=== PATIENT | female | born 1940 | race Caucasian/White ===

== ENCOUNTER → 2017-11-27 13:32 | Outpatient (CLI) | payer MEDICARE, OTHER, SELFPAY ==
--- NOTE | 2017-11-27 | DI.MRI.S_ITS ---
PROCEDURE: MR KNEE LT WO CON INDICATIONS: ARTHRITIS OF LEFT KNEE TECHNIQUE: Noncontrast sagittal PD fast spin echo and T2 fast spin echo with fat saturation, sagittal 3-D FLASH with fat saturation; coronal T1 spin echo and PD fast spin echo with fat saturation, and axial PD fast spin echo with fat saturation through the knee. COMPARISON: None. FINDINGS: Image quality: Excellent. Menisci: The medial meniscus is intact. The complex tear entire lateral meniscus is seen extending to both superior and inferior articulating surfaces and peripheral displacement of lateral meniscus bowing lateral collateral ligament. Cruciate ligaments: There is degenerative changes in anterior cruciate ligament. No evidence of ACL tear. Posterior cruciate ligament is intact. Medial structures: The medial collateral ligament appears intact. The posterior oblique ligament, semimembranosus tendon insertions, oblique popliteal ligament, and meniscocapsular junction appear intact. Visualized portions of the pes anserinus tendons appear normal. No abnormal bursal fluid. Lateral structures: Lateral collateral ligament sprain is seen with mildly thickened LCL and surrounding soft tissue edema. The long and short heads of the biceps femoris tendon appear intact. The popliteus tendon appears normal; the popliteofibular ligament appears intact. The posterosuperior and anteroinferior popliteomeniscal fascicles appear intact. The arcuate and fabellofibular ligaments appear intact, on either side of the lateral inferior geniculate artery. Iliotibial band appears normal. Anterior structures: The quadriceps and patellar tendons appear intact. Patellar alignment is normal. No femoral trochlear dysplasia or ventral trochlear prominence. No edema in the infrapatellar fat pad. Bones and cartilage: No bone marrow contusions or moderate to severe tricompartmental osteoarthritis is seen more prominent in the lateral femorotibial compartment. There is near-complete loss of articulating cartilage is a medial and lateral femorotibial compartments. Diffuse thinning of patellar cartilage is also seen. Medial meniscus is intact. Joint space: There is a moderate amount of joint effusion. 3.1 x 1 x 4.9 cm popliteal cyst is seen. No gross loose body. Normal appearing synovial plicae are incidentally noted. Impression: 1. Moderate to severe tricompartment osteoarthritis most prominent in lateral femorotibial compartment. No fracture or dislocation. A moderate amount of joint effusion. Popliteal cyst as above. 2. Chronic-appearing complex tear throughout lateral meniscus. No focal medial meniscal tear. 3. Degenerative changes in lateral anterior cruciate ligament. No evidence of cruciate ligament rupture. 4. Low-grade LCL sprain. Dictated by: Jonah Barker M.D. on 11/27/2017 at 14:57 Approved by: Jonah Barker M.D. on 11/27/2017 at 15:53
== END ==
PROVIDERS: Visit Provider Orthopaedic Surgery
DX: S83.282A Other tear of lateral meniscus, current injury, left knee, initial encounter (principal); S83.422A Sprain of lateral collateral ligament of left knee, initial encounter; M17.12 Unilateral primary osteoarthritis, left knee; M71.22 Synovial cyst of popliteal space [Baker], left knee; M25.462 Effusion, left knee
CPT/HCPCS: 73721

== ENCOUNTER 2018-01-06 15:06 | Observation (INO) | payer MEDICARE, OTHER, SELFPAY ==
[2017-12-23 12:51] VITALS: BMI 26.8
[2018-01-05] VITALS (12 sets, daily range): BP systolic 102–143; BP diastolic 46–88; PULSE 63–92; RESP 11–20; TEMP 35–37.1; O2SAT 91–100; BMI 26.8
--- NOTE | 2018-01-05 06:30 | DI.RAD.S_ITS ---
PROCEDURE: XR KNEE LT 1TO2V INDICATIONS: POST OPERATIVE TOTAL LEFT KNEE TECHNIQUE: 2 view(s) of the knee acquired. COMPARISON: [facility], CR, XR KNEE 3 VIEWS LEFT, 03/16/2017, 14:07. [facility], MR, MR KNEE LT WO CON, 11/27/2017, 14:05. [facility], CR, XR KNEE ARTHRITIC SERIES LT, 11/11/2017, 9:22. FINDINGS: Bones: Patient is status post knee joint arthroplasty. Hardware components are in expected positions. Visualized bony structures are intact. Soft tissues: Overlying postoperative changes are noted. IMPRESSION: Status post knee arthroplasty as above. Dictated by: Maria Alejandra Benz M.D. on 01/05/2018 at 17:04 Approved by: Maria Alejandra Benz M.D. on 01/05/2018 at 17:05
[2018-01-05] MEDS: CELECOXIB 200 MG CAPSULE PO (12:09)
[2018-01-05] MEDS: LACTATED RINGERS 1,000 ML 42 ML IV ×2 (12:09→14:39)
[2018-01-05] MEDS: PREGABALIN 75 MG CAPSULE PO (12:09)
[2018-01-05] MEDS: ACETAMINOPHEN 325 MG TABLET 975 MG PO ×2 (12:09→21:08)
[2018-01-05] MEDS: VANCOMYCIN 1,000 MG/200 ML FROZ.PIGGY 200 MG IV (12:31)
[2018-01-05] MEDS: CLINDAMYCIN 900 MG/50 ML PIGGYBACK 50 MG IV (13:22)
--- NOTE | 2018-01-05 13:25 | PM.PREOP ---
Pre-operative Note Interval Note Pre-op Check: Yes History & Physical Reviewed by Physician and Yes Exam Performed Changes: No
--- NOTE | 2018-01-05 13:30 | PM.OP.1 ---
Operative Date/Time/Diagnoses Date of procedure: 01/05/18 Time of procedure: 13:30 Pre-op diagnosis: Left knee osteoarthritis Post-op diagnosis: same Procedure & Clinicians Procedure: left total knee arthroplasty Same procedure as scheduled: Yes Indications: The patient has had progressively worsening left knee pain with radiographic changes consistent with arthritis. Non-operative management has failed and the patient has requested total knee replacement. The risks, benefits and alternatives to surgery were discussed with the patient prior to proceeding. Risks discussed included, but were not limited to, failure to relieve pain, stiffness, infection, nerve damage, deep venous thrombosis, pulmonary embolism, stroke, coma, heart attack, permanent paralysis and , as well as the potential need for eventual revision of the prosthetic. Surgeon: Anabell Vargas Cuff Setter Lockstitch: Melissa Kennedy Anesthesia Type: General and Spinal Operative Notes Findings: severe left knee osteoarthritis with marked valgus deformity Closure Type: primary Specimen(s): none sent Implants & Drains: Vargas and Nephew Garo BCS2 size 5 left femur, 35 mm patella, size 4 left tibia, +10 poly Estimated Blood Loss (mL): 200 Blood products transfused: none Tourniquet time (min): 78 Procedure in detail: The patient was seen in the pre-operative area, where the patient identified the right knee as the operative site and this was marked with my initials. The patient received pre-operative antibiotics, and was taken to the operating room and placed on the operative table in the supine position. After satisfactory anesthesia, a maritime guard out was performed. The right leg was encircled with a tourniquet about the proximal thigh, and the leg was prepared from the toes to the tourniquet with ChloroPrep in the usual fashion and draped through sterile drapes. The leg was elevated and exsanguinated with Eschmark bandage and the tourniquet inflated to [250] mmHg pressure. The knee was approached through an approximately 18 cm incision centered over the patella and carried into the knee through a medial parapatellar arthrotomy. A portion of the medial and lateral meniscus was resected. Soft tissue was carefully mobilized around the patella the patella was measured with a caliper. Bone was resected from the patella and the patellar height was reconstituted with up an appropriate sized patellar component. A cover was then placed on the patella. A small amount of additional medial and lateral meniscus was resected. The visionare guide fit well to the distal femur. It looked like an appropriate distal femoral cut and the cut was made without difficulty. The rotation was assessed and the appropriate size femoral guide was placed on the distal femur and finishing cuts were made. There was no evidence of notching. The anterior, posterior and chamfer cuts were then made. The posterior osteophytes and soft tissues were then removed. The posterior capsule was injected with part of a mixture of 60 ml 0.25% Marcaine mixed with 20 ml Exparel for post operative pain control. The remainder of this mixture was injected into the capsule and subcutaneous tissues during cement curing. The tibia was prepared and the visionaire guide fit well to the distal tibia. The rotation was assessed. The patient was placed in extension residual medial and lateral meniscus as well as any residual bone was carefully resected. [No] additional tibia was resected. Hemostasis was achieved especially posteriorly. Additional local was injected into the posterior capsule. The extension gap was assessed and additional releases for gap balancing were performed as necessary. It was checked with the gap piano machine operator. The femoral component was trial was placed and the notch was finished. Trial tibial and femoral components were then placed and the knee placed through a range of motion. Range of motion was [0-130], with good stability throughout the range. The trials were then removed, and the tibia was finished. The bone was prepared with pulsatile lavage, and dried with a sponge. Cement was applied and the final prosthetics placed. Excess cement was removed during and after cement curing. A brief Betadine soak was performed. After confirming there was no extruded cement posteriorly, the final tibial insert was placed. The knee was copiously irrigated and the tourniquet deflated. Hemostasis was obtained with the bovie cautery. A drain was placed and brought out superolaterally. The capsule was closed with interrupted braided suture. The subcutaneous layer was closed with barbed sutures, and the skin with a running 3-0 V-Lock suture and Surgical glue. An Aquacel Ag dressing was applied and the patient was taken to recovery having tolerated the procedure well. Complications: none Condition: stable Disposition: Acute Care Plan for aftercare: The patient will be maintained on a standard total knee replacement protocol with weight bearing as tolerated. The patient will receive aspirin and sequential compression devices for DVT prophylaxis. The patient will be discharged home when safe for the home environment.
--- NOTE | 2018-01-05 13:55 | SUR.OPER ---
Supine on padded OR bed. Pillow under head, arms secured on padded armboards <90 degree abduction. Safety belt across torso. Non-operative leg secured with tape over blanket over lower leg. Operative leg secured in DeMayo/Lenny positioner. Foam padded brace at thigh of operative leg.
[2018-01-05] MEDS: BUPIVACAINE 0.25% W/ EPI VIAL 50 ML INJ (14:03)
[2018-01-05] MEDS: BUPIVACAINE LIPOSOME 266 MG/20 ML VIAL INJ (14:03)
[2018-01-05] MEDS: TRANEXAMIC ACID 1,000 MG VIAL 1000 MG INJ ×2 (14:04→14:40)
[2018-01-05] MEDS: POVIDONE-IODINE 15 ML, SODIUM CHLORIDE 0.9% 250 ML TOP (14:05)
[2018-01-05] MEDS: LACTATED RINGERS 1,000 ML 125 ML IV (19:40)
[2018-01-05] MEDS: IBUPROFEN 600 MG TABLET PO (19:41)
[2018-01-05] MEDS: OXYCODONE IR 5 MG TABLET PO ×2 (19:44→23:55)
[2018-01-05] MEDS: POLYETHYLENE GLYCOL 3350 17 GM POWD.PACK PO (21:08)
[2018-01-05] MEDS: DOCUSATE 100 MG CAPSULE PO (21:08)
[2018-01-05] MEDS: ASPIRIN EC 81 MG TABLET PO (21:08)
[2018-01-05] MEDS: CEFAZOLIN 2 GM/100 ML FROZ.PIGGY IV (21:08)
[2018-01-06 03:52] VITALS: BP 137/58; PULSE 71; RESP 18; TEMP 36.6; O2SAT 97
[2018-01-06] MEDS: LACTATED RINGERS 1,000 ML 125 ML IV (04:00)
[2018-01-06] MEDS: CEFAZOLIN 2 GM/100 ML FROZ.PIGGY IV (05:43)
[2018-01-06] MEDS: OXYCODONE IR 5 MG TABLET PO ×2 (05:43→09:43)
--- NOTE | 2018-01-06 06:22 | PC.NURSE ---
This morning patient is very anxious. Reported feeling SOB with shallow breathing. Patients 02 sat on room air is 100%, RR 16. I explained to patient how taking narcotics can depress the respiratory system and she understood, however, it appears to be more of an anxiety issue rather than a narcotic one. HOB elevated, continuous pulse ox applied, reassured, told her to take slow deep breaths in through her nose and out through her mouth
[2018-01-06 06:33] LABS: Hemoglobin 11.2 g/dL (12.0-16.0)
[2018-01-06 07:20] VITALS: BP 133/76; PULSE 75; RESP 19; TEMP 36.6; O2SAT 100
[2018-01-06] MEDS: hydrOXYzine pamoate 25 MG CAPSULE 50 MG PO ×2 (08:13→14:04)
[2018-01-06] MEDS: ACETAMINOPHEN 325 MG TABLET 975 MG PO ×2 (08:14→14:04)
[2018-01-06] MEDS: ASPIRIN EC 81 MG TABLET PO (08:22)
[2018-01-06] MEDS: KETOROLAC 15 MG/ML VIAL IV (08:22)
[2018-01-06] MEDS: ONDANSETRON 4 MG/2 ML INJ IV (09:02)
--- NOTE | 2018-01-06 09:19 | CM.DANOTE ---
Patient is a 77 year old female who was admitted on 01/05/18 for LTKA. Pt has MCR and PRE PREFERRED for insurance and her PCP is Dr. Glen May. EMR was reviewed. Per RN, pt still has significant pain, nausea, and anxious. PT has been ordered and Pending. SW met bedside with pt and adult Dtr and explained role and pt confirmed that she lives at home alone on [address] with one supportive adult Dtr nearby who can provide assist at d/c and the Dtr who is currently bedside is here visiting from out of town and plans to stay a little while with the pt at d/c to assist. Pt is typically Independent with ADL's at baseline and drives. Pt has a walker and family just rented a Hospital Bed that was delivered and was placed near the bathroom on the main floor. Pt states that she has a hx of HH after a hip surgery and felt that HH PT was helpful but cannot remember the agency. Pt denies any hx of SNF. Pt states that her preference is home with her two adult Dtrs at discharge and that she has a dog and couple cats at home. Pt states she would be agreeable to HH if needed. Pt's Dtr also states that they have a private pay caregiver on hold in case the pt needs the extra assistance at d/c. Plan: SW to follow closely for PT/OT eval and recommendations to determine if pt is safe for d/c home with supportive adult Dtrs and to r/o HH or possible SNF if pt has ongoing pain management issues. KATIE Giles Discharge Planning/Care Management CM Discharge Assessment Start: 01/06/18 09:15 Freq: Status: Active Protocol: Document 01/06/18 09:16 BF (Rec: 01/06/18 09:19 [id number]) Discharge Planning Assessment Assigned Printing Plate Clerk KATIE Lyon Advance Directives? Yes Advance Directives on File No History Provided By Patient Family Member Medical Record Has Patient been admitted in last 30 No days? Prior Living Arrangements House Comment Home alone with one supportive Dtr nearby Household Members none Type of transporation used prior to Drives own vehicle admit Independent with ADL's Yes Is patient alert and oriented? Yes Caregiver for Another No: Has a dog and 3 cats DME Already Rented / Owned Hospital Bed FWW / Walker Comment PT/OT still pending, d/c needs unclear at this time. Barriers to Discharge No Discharge Plan Home Community Services Physical Therapy Occupational Therapy Transportation Arrangement Patient has two adult Dtrs who can provide transport at d/c Additional Comment Waiting for PT/OT eval and recommendations. Whiteboard Updated in Patient Room with Yes name and ext. # of Printing Plate Clerk Review Status In Process Please Provide Date Initial DC 01/06/18 Assessment Was Performed Next Review Type Continued Stay Review
[2018-01-06] MEDS: DOCUSATE 100 MG CAPSULE PO (09:43)
[2018-01-06] MEDS: hydroCHLOROthiazide 25 MG TABLET PO (09:44)
--- NOTE | 2018-01-06 09:55 | PT.IIE ---
Current Diagnoses Unilateral primary osteoarthritis, left knee (01/05/18) Surgery Performed Operation Date: 01/05/18 13:45 Actual Procedures p Total Knee Arthroplasty(Left) - Anabell Vargas MD Surgical History (Last Updated 12/29/17 @ 09:19 by Jennifer Rutherford RN) History of total right hip arthroplasty (Acute) Hx of cholecystectomy (Acute) Hx of tonsillectomy (Acute) Medical History (Last Updated 12/29/17 @ 09:19 by Jennifer Rutherford RN) Diverticulitis (Acute) Dizziness (Acute) RED DEVIL (hard of hearing) (Acute) HTN (hypertension) (Acute) History of hysterectomy (Acute) Osteoarthritis (Acute) Pneumonia (Acute) Syncope (Acute) Physical Therapy Inpatient Evaluation/Re-Eval M1 PT/OT-IP Prior Functional Status Start: 01/06/18 13:23 Freq: NEEDED Status: Active Protocol: Document 01/06/18 09:55 AB (Rec: 01/06/18 13:42 AB [id number]) Medical Review Prior Functional Status Medical History Reviewed Yes Communication able to make needs known Mobility and Gait pt stated that she is independent with all mobilities and ambulation without AD indoors but uses SPC for long distance outdoor mobility Social History Household Members none Living Arrangements House Number of Floors (Floors) Two Floors Number of Stairs To Enter/Railing? 4 steps to enter with R rail ascending has 1 flight of steps to 2nd floor with L rail ascending Home Environment Tub/Shower Home Equipment Front Wheel Walker Straight Cane Raised Toilet Seat w/Armrests Hand Held Shower Grab Bars In Shower Employment Status Retired Additional Social History Comment pt stated that she is going to stay on main level of the house and there is a hospital bed set up already and is ~ 10 steps away from the toilet. pt's daughter from [place] will be staying with pt until thursday and another daughter that lives ~ 5 miles away will check on pt afterwards. M2 PT-IP Current Condition Start: 01/06/18 13:23 Freq: NEEDED Status: Active Protocol: Document 01/06/18 09:55 AB (Rec: 01/06/18 13:42 AB [id number]) Physical Therapy Current Condition Current Condition Evaluation Date 01/06/18 Treatment Diagnosis s/p L TKA Onset Date 01/05/18 Weight Bearing Status Weight Bearing Status Weight Bear as Tolerated M3 PT-IP Subjective Start: 01/06/18 13:23 Freq: NEEDED Status: Active Protocol: Document 01/06/18 09:55 AB (Rec: 01/06/18 13:42 AB [id number]) Subjective Physical Therapy Visit Type Type Initial Evaluation Visit Start Time 09:55 Visit Stop Time 11:15 Total Visit Minutes 80 Number of CHILDREN'S TUTOR NURSERY Visits 0 Therapy Pain Assessment Pain When Pain Assessed During Mobility Pain Present Pain Present Pain Reported Location Left Knee Scale Used pain scale not stated Pain Management Techniques Timing of Activity with Medications M4 PT-IP Mobility and Gait Start: 01/06/18 13:23 Freq: NEEDED Status: Active Protocol: Document 01/06/18 09:55 AB (Rec: 01/06/18 13:42 AB [id number]) PT-Bed Mobility Assessment Supine to Sit Supine to Sit Standby Assistance PT-Transfer Assessment Sit to and From Stand Sit to and from Stand Contact Guard Assistance Equipment Transfer Assistive Device Gait Belt Front Wheeled Walker Orthotic/Prosthetic Devices or Brace: No Transfers Transfer Destination Chair Transfer Technique Stand Step Pivot Transfer Ability Level of Assist Contact Guard Assistance Gait Assessment Gait Gait Assistance Required: Contact Guard Assist Distance (Feet) (feet) 50 Able to Maintain Weight Bearing Status Yes During Gait Assistive Devices Assistive Device Gait Belt Front Wheeled Walker Orthotic/Prosthetic Devices or Brace: No Gait Deviations General Gait Pattern Antalgic Decreased Stride Length Decreased Feet Clearance Factors Limiting Gait Function Factors Limiting Gait Function Decreased Activity Tolerance Decreased Strength Difficulty Following Directions Limited Range of Motion Pain Poor Balance Poor Safety Awareness Comments Gait Comments requires cues for safety Stair Climbing Assessment Evaluation Level of Assist On Stairs Minimal Assistance Devices Stair Climbing Assistive Devices Right Railing Technique/Endurance Stair Climbing Direction Ascend and Descend Stair Climbing Technique Step to Step Number of Steps Climbed 3 Query Text: Stair Climbing Set # Repetitions (reps) 1 Comments Stair Climbing Comments pt completed descent on steps backwards requiring min A. pt stated that this is how she does it at home and is more comfortable completing steps backwards. pt completed safely with daughter assisting . PT-Balance Assessment Sitting Balance and Reactions Static Sitting Balance Ability Good Dynamic Sitting Balance Ability Good Standing Balance and Reactions Static Standing Balance Ability Fair Dynamic Standing Balance Ability Fair Device Used FWW M5 PT-IP Objective Assessments Start: 01/06/18 13:23 Freq: NEEDED Status: Active Protocol: Document 01/06/18 09:55 AB (Rec: 01/06/18 13:42 AB [id number]) Orientation Orientation/Cognition Level of Alertness Confusional State Orientation Name Age Birthday Place Situation Safety Awareness Decreased Safety Awareness Memory Description Short Term Impaired [facility] Impaired Comments pt seems a little confused requiring repeated cues for instructions. daughter stated that it is because of the meds. Gross Range of Motion Lower Extremity ROM Assessment Left Impaired Strength Lower Extremity Strength Assessment Left Impaired Knee 4-/5 Sensation Assessment Sensation Gross Sensation WNL Muscle Tone Muscle Tone WNL Yes M6 PT-IP Treatment Start: 01/06/18 13:23 Freq: NEEDED Status: Active Protocol: Document 01/06/18 09:55 AB (Rec: 01/06/18 13:42 AB [id number]) Physical Therapy Treatment Exercises Exercises Heel Slides Education Education Provided Precautions Weight Bearing Status Post-Op Packet Safety Other Treatments Other Treatment Performed caregiver training completed with daughter assisting pt. educated on how to use safety belt on pt and how to assist and cue pt safely. daughter was able to demonstrate safety with assisting pt and providing necessary assistance pt needed. M7 PT-IP Assessment and Plan Start: 01/06/18 13:23 Freq: NEEDED Status: Active Protocol: Document 01/06/18 09:55 AB (Rec: 01/06/18 13:42 AB [id number]) PT Summary Assessment and Plan Potential Rehabilitation Potential Good Status of Condition at Evaluation Evolving Summary Impairments Pain ROM Strength Balance Coordination Sensation Tone Cognition Bed Mobility Transfers Gait Activity Tolerance Assessment Summary pt requiring one person assist with mobility. caregiver training completed for bed mobility, transfers, ambulation and stairclimbing and daughter was able to safely assist pt. pt may go home when medically stable. Goals Bed Mobility Goal Independent Transfer Goal Independent Gait Goal Independent Gait Distance 100 Other Goals up/down 4 steps with R rail ascending SBA Days to Meet Goals 2 Frequency of Treatment Frequency Of Treatment Twice a Day Treatment Plan Physical Therapy Treatment Plan Bed Mobility Training Transfer Training Gait Training Therapeutic Exercise Balance Retraining Post Op Education Discharge Planning Hot or Cold Pack Neuromuscular Re-ed Coordination Retraining Manual Therapy Other Recommendations and Next Treatment caregiver training, ambulation Focus , stair climbing Recommendations To Nursing Amount of Assist Needed 1 Person Assist Discharge Recommendations PT Discharge Recommendations Home with 17/11 Assist Outpatient PT
--- NOTE | 2018-01-06 10:04 | PM.PNPO.1 ---
Subjective Date Patient Seen: 01/06/18 Time Patient Seen: 10:04 Interval history: Patient's pain is currently mild. She notes is severe earlier this morning. She has been up a couple times to use the bathroom but has not had formal physical therapy yet. Her daughters are home to assist her. She has for small steps into her home. If she is able ambulate with physical therapy she would like to go home later this afternoon. Denies fever chills. Otherwise without complaints. Exam Vital Signs (past 8 hours): - 01/06/18 03:52 Temperature 97.9 F Pulse Rate 71 Respiratory Rate 18 Blood Pressure 137/58 L Pulse Oximetry 97 Oxygen Delivery Method Room Air Narrative Exam Narrative: Pleasant 77-year-old female resting comfortably in bed in no apparent distress. Left knee dressing is clean, dry and intact. Motor functions intact to the distal left lower extremity. Leg is warm and dry. Sensation is grossly intact to light touch. Objective Labs Result Diagrams: 01/06/18 06:08 Labs: Laboratory Results - last 24 hr 01/06/18 06:08 Hgb 11.2 L Hct 32.0 L Assessment & Plan Post-op Postoperative Procedures Operation Date: 01/05/18 13:45 Actual Procedures Side Surgeon p Total Knee Arthroplasty Left Anabell Vargas MD Postop day 1. Patient progressing as expected status post left total knee arthroplasty. Ambulate with physical therapy. Likely discharge home later this afternoon. Quality VTE Deep Vein Thrombosis/Pulmonary Embolism Present on Admission: No
--- NOTE | 2018-01-06 15:20 | PT.IPTN ---
Current Diagnoses Unilateral primary osteoarthritis, left knee (01/05/18) Surgery Performed Operation Date: 01/05/18 13:45 Actual Procedures p Total Knee Arthroplasty(Left) - Anabell Vargas MD Physical Therapy Treatment Note M2 PT-IP Current Condition Start: 01/06/18 13:23 Freq: NEEDED Status: Active Protocol: Document 01/06/18 09:55 AB (Rec: 01/06/18 13:42 AB [id number]) Physical Therapy Current Condition Current Condition Evaluation Date 01/06/18 Treatment Diagnosis s/p L TKA Onset Date 01/05/18 Weight Bearing Status Weight Bearing Status Weight Bear as Tolerated M3 PT-IP Subjective Start: 01/06/18 13:23 Freq: NEEDED Status: Active Protocol: Document 01/06/18 15:20 GGD (Rec: 01/06/18 16:43 GGD [id number]) Subjective Physical Therapy Visit Type Type Treatment Note Visit Start Time 14:55 Visit Stop Time 15:20 Total Visit Minutes 25 Number of [employer] OPERATOR Visits 1 Physical Therapy Visit Comments Patient Comments Pt hopes to go home today. Therapy Pain Assessment Pain When Pain Assessed At Rest Pain Present Pain Present Pain Reported Location Left Knee Intensity 3 Scale Used Numeric (1 - 10) Pain Management Techniques Re-positioning Timing of Activity with Medications M4 PT-IP Mobility and Gait Start: 01/06/18 13:23 Freq: NEEDED Status: Active Protocol: Document 01/06/18 15:20 GGD (Rec: 01/06/18 16:43 GGD [id number]) PT-Bed Mobility Assessment Sit to Supine Sit to Supine Contact Guard Assistance Scooting Scooting to Edge of Bed Standby Assistance PT-Transfer Assessment Sit to and From Stand Sit to and from Stand Contact Guard Assistance Use of Upper Extremities Equipment Transfer Assistive Device Gait Belt Front Wheeled Walker Transfers Transfer Destination Chair Gait Assessment Gait Gait Assistance Required: Contact Guard Assist Distance (Feet) (feet) 60 Assistive Devices Assistive Device Gait Belt Front Wheeled Walker Gait Deviations General Gait Pattern Antalgic Decreased Stride Length Decreased Feet Clearance Factors Limiting Gait Function Factors Limiting Gait Function Decreased Strength Limited Range of Motion Pain Stair Climbing Assessment Evaluation Level of Assist On Stairs Contact Guard Assistance Devices Stair Climbing Assistive Devices Right Railing Technique/Endurance Stair Climbing Direction Ascend and Descend Stair Climbing Technique Step to Step Number of Steps Climbed 3 Query Text: Stair Climbing Set # Repetitions (reps) 1 Comments Stair Climbing Comments Pt ascend steps forward and decends backwards. She needed CGA and min cues. M5 PT-IP Objective Assessments Start: 01/06/18 13:23 Freq: NEEDED Status: Active Protocol: Document 01/06/18 09:55 AB (Rec: 01/06/18 13:42 AB [id number]) Orientation Orientation/Cognition Level of Alertness Confusional State Orientation Name Age Birthday Place Situation Safety Awareness Decreased Safety Awareness Memory Description Short Term Impaired Net Mvc Developer Impaired Comments pt seems a little confused requiring repeated cues for instructions. daughter stated that it is because of the meds. Gross Range of Motion Lower Extremity ROM Assessment Left Impaired Strength Lower Extremity Strength Assessment Left Impaired Knee 4-/5 Sensation Assessment Sensation Gross Sensation WNL Muscle Tone Muscle Tone WNL Yes M6 PT-IP Treatment Start: 01/06/18 13:23 Freq: NEEDED Status: Active Protocol: Document 01/06/18 15:20 GGD (Rec: 01/06/18 16:43 GGD [id number]) Physical Therapy Treatment Exercises Exercises Ankle Pumps Quad Sets Heel Slides Seated Knee Flexion/Extension Education Education Provided Safety M7 PT-IP Assessment and Plan Start: 01/06/18 13:23 Freq: NEEDED Status: Active Protocol: Document 01/06/18 15:20 GGD (Rec: 01/06/18 16:43 GGD [id number]) PT Summary Assessment and Plan Summary Assessment Summary Pt improving with mobility. She was stable and no LOB with gait or stairs. She did need cues for sit to stand and stairs. Family is able to assist as needed. Pt d/c to home when medically stable. Frequency of Treatment Frequency Of Treatment Twice a Day Treatment Plan Other Recommendations and Next Treatment caregiver training, ambulation Focus , stair climbing Recommendations To Nursing Amount of Assist Needed 1 Person Assist Discharge Recommendations PT Discharge Recommendations Home with 17/11 Assist Outpatient PT
--- NOTE | 2018-01-06 15:26 | PM.DS.1 ---
History of Present Illness Date Patient Seen: 01/06/18 Time Patient Seen: 15:26 Chief complaint: [id number] LEFT TOTAL KNEE ARTHROPLASTY Narrative: Patient's pain is [id number]. She did have some nausea this morning however that has cleared with Vistaril. No fever chills. Up with physical therapy walking down the painter and was able to complete a few steps. Her daughters will be home to assist her. Patient is wanting to go home today. Discharge Providers Date of admission: 01/05/18 11:16 Primary care physician: Glen May MD Consults: 01/05/18 17:03 Consult to Discharge Planning Routine Comment: Consult to Physical Therapy Evaluate & Treat Comment: Physician Instructions: postop TKA protocol Consult to Respiratory Therapy Evaluate & Treat Comment: Physician Instructions: Evaluate and treat Discharge provider: Devin Tejeda PA-C Exam Vital Signs (past 8 hours): Oxygen Delivery Method Room Air Oxygen Flow Rate 0 Narrative Exam Narrative: Pleasant 77-year-old female walking the painter with physical therapy. Patient is in no apparent distress. Dressing is clean, dry and intact. Objective Labs Result Diagrams: 01/06/18 06:08 Labs: Laboratory Results - last 24 hr 01/06/18 06:08 Hgb 11.2 L Hct 32.0 L Discharge Plan Discharge Plan Patient Disposition: Home Discharge comment: DC home Discharge Med Rec/Prescriptions Prescriptions: New hydroxyzine pamoate [Vistaril] 25 mg capsule 25 mg PO Q6-8H PRN (Reason: nausea and vomiting) Qty: 30 RF: 1 Continue hydrochlorothiazide 25 mg Tablet 25 mg PO DAILY RF: 0 acetaminophen [Tylenol Arthritis Pain] 650 mg Tablet Extended Release 650 mg PO Q8H PRN (Reason: pain) RF: 0 Miralax 1 cap PO BEDTIME RF: 0 Provider Discharge Instructions Diet: Diet as Tolerated Activity: WBAT Cold/Heat Therapy: ice as needed Other treatments: Patient will be on aspirin 81 mg b.i.d., Tylenol 1000 mg 3 times daily, Mobic 1 daily, oxycodone as needed pain, Vistaril as needed nausea and/or muscle spasm. Skin/Wound/Dressing Care Report to your healthcare provider any signs of infection, such as:: chills, fever, night sweats, increased pain and unusual drainage Dressing: keep dressing clean and dry Discharge Data Primary Care Provider: Glen May Attending Provider: Anabell Vargas Admit Date/Time: 01/05/18 11:16 Quality VTE Deep Vein Thrombosis/Pulmonary Embolism Present on Admission: No
--- NOTE | 2018-01-06 17:10 | PC.NURSE ---
Bertha shift note: Patient awake, alert and pleasant. Ambulated to bathroom with minimal assistance and FWW. Dressing to left knee, CDI. Discharged per MD instructions, discussed importance of F/U, medication for home use as prescribed, mobility and dressing care. Verbalized understanding of discharge instructions. Transferred to private vehicle via WC accompanied by daughter.
--- NOTE | 2018-01-06 17:19 | PC.NURSE ---
Late entry: Hemovac dc'd at 1500. IV removed intact. Patient assisted to dress. Atilio with aquacel intact. Patient is anticipating discharge this afternoon to be discharged home with daughter. Voiding without difficulty. Tolerated lunch. Patient waiting with daughters to review discharge instructions with evening shift RN.
== END 2018-01-06 17:16 | disposition home or self-care (01) ==
LOC: AC 16:14 → OR 01-07 10:07 → AC 01-07 10:20
PROVIDERS: Admitting Provider Orthopaedic Surgery; PCP Orthopaedic Surgery; Visit Provider Orthopaedic Surgery
PROC: 0SRD0JZ Replacement of Left Knee Joint with Synthetic Substitute, Open Approach (ICD-10-PCS; CPT 27447; principal; 2018-01-05 13:45)
DX: M17.12 Unilateral primary osteoarthritis, left knee (principal); I10 Essential (primary) hypertension
CPT/HCPCS: 27447; 36415; 73560; 85014; 85018; 97116; 97162; 97530; C1776; G0378; C9290; J0690; J1885; J2250; J2405; J2704; J3010; J3370